=== PATIENT | male | born 1945 | race Caucasian/White ===

== ENCOUNTER 2021-10-03 19:56 | Emergency (ER) | payer MEDICARE ==
[2021-10-03 20:15] LABS: HEMOGLOBIN 13.2 gm/dl (14.0-17.5); RED BLOOD COUNT 4.57 M/UL (4.20-5.50); WHITE BLOOD COUNT 13.7 K/UL (4.5-11.0)
[2021-10-03 20:36] LABS: BUN/CREATININE RATIO 21 (0-10)
[2021-10-03] MEDS ORDERED: ROCEPHIN 1 GM AD1 GM IM (23:05)
== END 2021-10-03 23:32 ==
LOC: ER1 19:56
DX: N39.0 Urinary tract infection, site not specified (principal); Z20.822 Contact with and (suspected) exposure to COVID-19
CPT/HCPCS: 0240U; 36600; 51701; 70450; 71045; 80053; 81001; 82140; 82550; 82553; 82803; 83605; 84484; 85025; 87077; 87086; 87186; 93005; 94640; 96374; 99285; J0696